=== PATIENT | male | born 1985 | race Caucasian/White ===

== ENCOUNTER → 2017-09-17 | Outpatient (CLI) | payer OTHER ==
[~2017-09-17] MED LIST: GADOBUTROL 7.5 MMOL/7.5 ML VIAL INT ART ONE; IOHEXOL 300 MG/ML 50 ML VIAL. INT ART ONE; LIDOCAINE 1% Multi-Dose 20 ML VIAL. ID ONE
--- NOTE | 2017-09-17 12:15 | KCIC ---
Fluoroscopic guided left shoulder injection dated 09/17/2017: No comparison available. Clinical Indication: Gadolinium injection for MRI. Technical factors: The potential benefits and risks of the procedure were discussed with the patient and informed consent was obtained. The anterior left shoulder was prepped and draped in a sterile fashion. After local anesthesia, a 22-gauge spinal needle was inserted into the left shoulder joint using an anterior approach.Following negative aspiration, 15 cc's of a solution of 5cc Omnipaque contrast, 5 cc 1% lidocaine, 10 cc normal saline, and 0.1 cc gadolinium was injected without difficulty. The needle was then removed and a dry sterile dressing was applied. The patient was then sent to the MR suite for imaging. The patient tolerated the procedure well. 1 minute 10 seconds fluoroscopic time. One image. Findings: Single fluoroscopic image shows needle tip at the medial inferior 1/3 of the humeral head. Contrast material extends into the joint space. Impression: Fluoroscopic guided left shoulder injection for MRI as described above. Electronically signed by: Torin Abad MD (09/17/2017 12:12 PM) [id number]
--- NOTE | 2017-09-17 15:46 | KCIC ---
MR arthrogram left shoulder dated 09/17/2017. No comparison available. Clinical indication: Pain for one year. Weakness. Technique: Fat-saturated T1 weighted imaging performed in the coronal, axial and abduction external rotation planes following the intra-articular injection of dilute gadolinium. Injection portion of the study will be reported separately. In addition, standard T2-weighted imaging performed in 3 planes along with a nonfat saturated T1 sagittal sequence. FINDINGS: Adequate distention of the joint space with contrast material. The posterior labrum is blunted morphology and there is a linear defect extending from the 12:00 position to at least the 6:00 position. There is also probable involvement of the anterior inferior labrum. Multiple small perilabral cysts, the largest of which measures up to 1.2 cm along the posterior glenoid margin. Glenoid articular cartilage is intact. No intra-articular loose body. There is intermediate T2 signal within the substance of the long head biceps tendon proximally. The biceps anchor is intact. Extra articular biceps tendon courses within the bicipital groove. Mild hypertrophic change of the AC joint. No significant undersurface spurring. Small amount of subacromial/subdeltoid bursal fluid. Acromion type II morphology. There is mild increased T2 signal within the supraspinatus and infraspinatus portions of the rotator cuff. No full-thickness tear or cuff retraction. Subscapularis is intact. Suprascapular and spinoglenoid notches are clear. No significant muscle edema or muscle atrophy. IMPRESSION: 1. Circumferential tear of the posterior labrum extending from 12:00 to 6:00. There is also probable mild involvement of the anterior inferior labrum. 2. Mild proximal biceps tendinosis. 3. Mild rotator cuff tendinopathy with no evidence of full-thickness tear. 4. Mild AC joint arthropathy. Electronically signed by: Torin Abad MD (09/17/2017 12:44 PM) [id number]
== END | disposition home or self-care (01) ==
LOC: KCIC 10:21
PROVIDERS: ATTEND Orthopaedic Surgery
DX: M25.512 Pain in left shoulder (principal); G89.29 Other chronic pain; R53.1 Weakness; S43.402A Unspecified sprain of left shoulder joint, initial encounter; X58.XXXA Exposure to other specified factors, initial encounter; Y93.89 Activity, other specified; Y92.89 Other specified places as the place of occurrence of the external cause; Y99.8 Other external cause status
CPT/HCPCS: 73040; 73222; A9585; Q9967

== ENCOUNTER → 2018-03-09 | Outpatient (CLI) | payer BC ==
[2018-03-09 16:01] LABS: ADD MAN DIFF? NO
[2018-03-09 16:14] LABS: BASO % 0 % (0-3); EOS # 0.2 x10^3/uL (0.0-0.7); EOS % 3 % (0-3); HEMATOCRIT 42.3 % (39.0-53.0); LYMPH % 35 % (24-48); MEAN CORPUSCULAR HEMOGLOBIN 31 pg (25-35); MEAN CORPUSCULAR HGB CONC 35 g/dL (31-37); MEAN CORPUSCULAR VOLUME 89 fL (79-100); MONO # 0.5 x10^3/uL (0.0-1.1); MONO % 8 % (0-9); NEUT # 3.1 x10^3uL (1.8-7.7); NEUT % 54 % (31-73); PLATELET COUNT 340 x10^3/uL (140-400); RED BLOOD COUNT 4.76 x10^6/uL (4.30-5.70); RED CELL DISTRIBUTION WIDTH 13.1 % (11.5-14.5); WHITE BLOOD COUNT 5.8 x10^3/uL (4.0-11.0)
[2018-03-09 16:33] LABS: ALBUMIN 4.5 g/dL (3.4-5.0); ALBUMIN/GLOBULIN RATIO 1.2 (1.0-1.7); ALK PHOS 61 U/L (46-116); ALT (SGPT) 59 U/L (16-63); ANION GAP 8 (6-14); AST (SGOT) 19 U/L (15-37); BLOOD UREA NITROGEN 14 mg/dL (8-26); BUN/CREATININE RATIO 16 (6-20); CALCIUM 9.5 mg/dL (8.5-10.1); CARBON DIOXIDE 30 mmol/L (21-32); CHLORIDE 103 mmol/L (98-107); CREATININE 0.9 mg/dL (0.7-1.3); GFR 99.1; GLUCOSE 89 mg/dL (70-99); POTASSIUM 3.8 mmol/L (3.5-5.1); SODIUM 141 mmol/L (136-145); TOTAL BILIRUBIN 0.5 mg/dL (0.2-1.0); TOTAL PROTEIN 8.2 g/dL (6.4-8.2)
[2018-03-10 02:15] LABS: MRSA BY PCR Negative (Negative)
== END | disposition home or self-care (01) ==
LOC: SURGPAT 13:50
DX: Z01.812 Encounter for preprocedural laboratory examination (principal); M51.16 Intervertebral disc disorders with radiculopathy, lumbar region
CPT/HCPCS: 36415; 80053; 85025; 87641

== ENCOUNTER → 2018-03-18 | Day surgery (SDC) | payer BC, OTHER ==
[~2018-03-18] MED LIST changes: +DESFLURANE > 120 MINUTES IH; +DEXAMETHASONE SOD PHOS 20 MG/5 ML VIAL.; -GADOBUTROL 7.5 MMOL/7.5 ML VIAL INT ART ONE; +GLYCOPYRROLATE 1 MG/5 ML VIAL.; -IOHEXOL 300 MG/ML 50 ML VIAL. INT ART ONE; +IV RINGERS,LACTATED 1000ML 1,000 ML IV; +KETOROLAC 30 MG/ML INJ FOR OR. INJ; -LIDOCAINE 1% Multi-Dose 20 ML VIAL. ID ONE; +LIDOCAINE 1% PF 2 ML VIAL. ID; +MIDAZOLAM HCL/PF 2 MG/2 ML VIAL.; +MORPHINE SULFATE 4 MG/ML DISP.SYRIN. IV; +ONDANSETRON PF 4 MG/2 ML VIAL.; +ONDANSETRON PF 4 MG/2 ML VIAL. IV; +PHENYLEPHRINE 10 MG/ML VIAL.; +PROCHLORPERAZINE 10 MG/2 ML VIAL. IV; +PROPOFOL 20 ML IV; +PROPOFOL 50 ML IV; +REMIFENTANIL 1 MG VIAL. IV; +REMIFENTANIL 2 MG VIAL. IV; +ROCURONIUM 50 MG/5 ML VIAL.; +ceFAZolin 2GM PREMIX 2 GM/50 ML BAG IV; +fentaNYL PF VIAL 100 MCG/2 ML VIAL; +fentaNYL PF VIAL 100 MCG/2 ML VIAL IV
[2018-03-18] MEDS: BUPIVAC MPF-EPI 0.5%-1:200000 30 ML VIAL. INJ (12:30)
[2018-03-18] MEDS: KETOROLAC 60 MG/2 ML INJ FOR OR. (12:30)
[2018-03-18] MEDS: THROMBIN TOPICAL 20,000 UNIT SPRAY.SYRN KIT TP (12:30)
[2018-03-18] MEDS: GELATIN SPONGE SIZE 100. (12:30)
[2018-03-18] MEDS: BACITRACIN 50,000 UNIT in IV NORMAL SALINE 1000ML BAG 1,000 ML IRR (12:30)
[2018-03-18] MEDS: fentaNYL PF VIAL 100 MCG/2 ML VIAL IV ×2 (15:35→15:48)
[2018-03-18] MEDS: HYDROcodone/APAP 7.5/325MG 1 TAB TABLET PO (16:20)
== END ==
LOC: SURG 10:03
DX: M51.16 Intervertebral disc disorders with radiculopathy, lumbar region (principal); Z79.899 Other long term (current) drug therapy; Z98.890 Other specified postprocedural states
CPT/HCPCS: 63030; 76000; 88304; 88311; 97161-GP; J0690; J1100; J1885; J2250; J2405; J2704; J3010; J3490; J7030